=== PATIENT | female | born 1980 | race Caucasian/White ===

== ENCOUNTER 2024-02-03 06:19 | Day surgery (SDC) | payer OTHER ==
[~2024-02-03] VITALS: Ht 157.5 cm; Wt 77.1 kg
[2024-02-03] MEDS ORDERED: LIDOCAINE 2% 100 MG/5 ML UJET TP ONE (07:55)
[2024-02-03] MEDS ORDERED: fentaNYL citrate 0.05 MG/ML VIAL ONE (07:55)
[2024-02-03] MEDS: fentaNYL citrate 0.05 MG/ML VIAL IVP ONE (08:36)
[2024-02-03] MEDS ORDERED: MIDAZOLAM 2 MG/2 ML VIAL ONE ×2 (08:52→08:53)
[2024-02-03] MEDS: MIDAZOLAM 2 MG/2 ML VIAL IV ONE (08:55)
== END 2024-02-03 10:12 | disposition home or self-care (01) ==
LOC: MDS 06:19 → MMU 06:27 → MDS 10:12
PROVIDERS: ATTEND Internal Medicine Gastroenterology
DX: K59.00 Constipation, unspecified (principal); K63.89 Other specified diseases of intestine; D64.9 Anemia, unspecified; G43.909 Migraine, unspecified, not intractable, without status migrainosus; Z90.49 Acquired absence of other specified parts of digestive tract
CPT/HCPCS: 45378; J2250; J3010